=== PATIENT | female | born 1970 | race Caucasian/White ===

== ENCOUNTER 2018-05-22 19:08 | Emergency (ER) | payer BC ==
[~2018-05-22] VITALS: Ht 167.6 cm; Wt 74.8 kg
[~2018-05-22 19:08] MED LIST: ACET325; ACET500 PO; ASPI325EC PO; Avidoxy100 MG PO; CELE100; HYDACE10B PO; HYDACE5 PO; HYDR1TAB94 PO; LEVFLO500 PO; NAPR500 PO; ROXICODONE5 MG PO; TRAM50; VARE1
[2018-05-22] MEDS ORDERED: ALBU90OI INH (20:12)
== END 2018-05-22 21:02 | disposition home or self-care (01) ==
LOC: ER 19:08
DX: M25.552 Pain in left hip (principal); Z79.899 Other long term (current) drug therapy; F17.210 Nicotine dependence, cigarettes, uncomplicated
CPT/HCPCS: 73502; 99283-25